=== PATIENT | male | born 2000 | race Caucasian/White ===

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

== ENCOUNTER 2023-07-04 20:13 | Emergency (ER) | payer MEDICAID ==
[~2023-07-04] VITALS: Ht 175.3 cm; Wt 77.3 kg
[2023-07-04 20:29] VITALS: BP 112/81; PULSE 108; RESP 19; TEMP 98.4
== END 2023-07-04 23:43 | disposition left against medical advice (07) ==
LOC: EMS 20:14
DX: Z01.812 Encounter for preprocedural laboratory examination (principal); Z53.21 Procedure and treatment not carried out due to patient leaving prior to being seen by health care provider
CPT/HCPCS: 99281; Z7502